=== PATIENT | male | born 2000 | race African-American/Black ===

== ENCOUNTER 2022-04-16 14:29 | Emergency (ER) | payer MEDICAID ==
[~2022-04-16] VITALS: Ht 172.7 cm; Wt 55.0 kg
[2022-04-16] MEDS ORDERED: SODIUM CHLORIDE 0.9% 1,000 ML IV ONE (15:00)
[2022-04-16 15:11] LABS: BASOPHILS % 1.3 % (0.0-2.0); EOSINOPHILS % 0.4 % (0.0-5.0); HEMATOCRIT. 34.1 % (42.0-52.0); HEMOGLOBIN. 10.8 g/dL (14.0-18.0); LYMPHOCYTES % 16.4 % (20.0-50.0); MEAN CORPUSCULAR HEMOGLOBIN 30.9 pg (28.0-32.0); MEAN CORPUSCULAR VOLUME 97.4 fL (80.0-94.0); MEAN PLATELET VOLUME 6.9 fl (7.4-10.4); MONOCYTES % 6.3 % (2.0-8.0); NEUTROPHILS % 75.6 % (40.0-76.0); PLATELET 380 x1000/uL (130-400); RED CELL DISTRIBUTION WIDTH 13.8 % (11.6-14.6)
[2022-04-16 15:25] LABS: CHLORIDE 110 mEq/L (98-107)
[2022-04-16 18:58] VITALS: BP 112/69
== END 2022-04-16 18:59 | disposition home or self-care (01) ==
LOC: ER 14:35
DX: F19.10 Other psychoactive substance abuse, uncomplicated (principal); T40.2X1A Poisoning by other opioids, accidental (unintentional), initial encounter; Y92.89 Other specified places as the place of occurrence of the external cause
CPT/HCPCS: 36415; 71250; 80053; 84484; 85025; 96360; 96361; 99284

== ENCOUNTER 2023-08-23 17:21 | Emergency (ER) | payer MEDICAID ==
[~2023-08-23] VITALS: Ht 167.6 cm; Wt 64.0 kg
[2023-08-23 17:27] VITALS: BP 146/88; PULSE 101; RESP 18; TEMP 98.6; O2SAT 98
[2023-08-23] MEDS ORDERED: LORAZEPAM 1MG TABLET PO ONE (17:30)
[2023-08-24] MEDS ORDERED: MELA5TAB19 MT (12:09)
== END 2023-08-23 17:36 | disposition home or self-care (01) ==
LOC: ER 17:21
DX: F14.10 Cocaine abuse, uncomplicated (principal); F41.9 Anxiety disorder, unspecified
CPT/HCPCS: 99283

== ENCOUNTER 2023-08-24 11:49 | Emergency (ER) | payer MEDICAID ==
[~2023-08-24] VITALS: Ht 172.7 cm; Wt 59.0 kg
[2023-08-24 11:53] VITALS: TEMP 98.6; O2SAT 100
[2023-08-24] MEDS ORDERED: MELA5TAB19 MT (12:09)
[2023-08-24 12:18] VITALS: BP 120/75; PULSE 84; RESP 18
== END 2023-08-24 12:20 | disposition home or self-care (01) ==
LOC: ER 11:49
DX: G47.00 Insomnia, unspecified (principal); Z72.89 Other problems related to lifestyle
CPT/HCPCS: 99283

== ENCOUNTER 2023-08-30 14:17 | Emergency (ER) | payer MEDICAID ==
[~2023-08-30] VITALS: Ht 177.8 cm; Wt 80.0 kg
[~2023-08-30 14:17] MED LIST: MELA5TAB19 MT
[2023-08-30 14:28] VITALS: BP 134/81; PULSE 73; RESP 16; TEMP 98; O2SAT 97
== END 2023-08-30 15:15 | disposition home or self-care (01) ==
LOC: ER 14:17
DX: Z00.00 Encounter for general adult medical examination without abnormal findings (principal); F15.90 Other stimulant use, unspecified, uncomplicated; F12.90 Cannabis use, unspecified, uncomplicated
CPT/HCPCS: 99283